=== PATIENT | male | born 1980 | race Caucasian/White ===

== ENCOUNTER 2022-07-07 11:52 | Inpatient (IN) | payer BC ==
[~2022-07-07] VITALS: Ht 182.9 cm; Wt 145.1 kg
[2022-07-07 11:58] VITALS: BP_SYST 166
[2022-07-07 12:30] LABS: BASOPHILS % (AUTO) 0.3 % (0.0-2.0); EOSINOPHILS % (AUTO) 0.7 % (0.0-4.0); HEMATOCRIT 45.3 % (36-54); LYMPHOCYTES # (AUTO) 1.1 K/uL (1.0-5.5); LYMPHOCYTES % (AUTO) 17.4 % (20.5-51.5); MEAN CORPUSCULAR VOLUME 91 fL (79.0-98.0); MONOCYTES # (AUTO) 0.5 K/uL (0.0-1.0); MONOCYTES % (AUTO) 7.1 % (1.7-9.3); NEUTROPHILS # (AUTO) 4.8 K/uL (1.8-7.7); NEUTROPHILS % (AUTO) 74.5 % (40.0-70.0); PLATELET COUNT (AUTO) 311 K/uL (130-430); RED BLOOD CELL COUNT(AUTO) 4.98 MIL/uL (4.2-6.2); WHITE BLOOD COUNT (AUTO) 6.4 K/uL (4.8-10.8)
[2022-07-07 12:39] LABS: CALCIUM 9.1 mg/dL (8.4-11.0); CREATININE 0.99 mg/dL (0.55-1.30); POTASSIUM 4.2 mmol/L (3.5-5.1)
[2022-07-07 12:50] LABS: ALBUMIN 3.3 g/dL (3.4-4.8); TOTAL BILIRUBIN 4.3 mg/dL (0.0-1.0)
[2022-07-07] MEDS ORDERED: HALOPERIDOL LACTATE 5 MG/ML VIAL IM ONE (13:30)
[2022-07-07] MEDS ORDERED: MORPHINE 2 MG/ML INJ. SYRINGE IVP PRN ×2 (15:00→15:45)
[2022-07-07] MEDS ORDERED: cloNIDine HCL 0.2 MG TABLET PO PRN (15:45)
[2022-07-07] MEDS ORDERED: LORazepam 2 MG/ML VIAL IVP PRN (15:45)
[2022-07-07] MEDS ORDERED: POTASSIUM CHLORIDE 20 MEQ TAB.PRT.SR PO PRN (15:45)
[2022-07-07] MEDS ORDERED: NALOXONE HCL 0.4 MG/ML AMP (NARCAN) IVP PRN ×2 (15:45)
[2022-07-07] MEDS ORDERED: ZOLPIDEM TARTRATE 5 MG TABLET PO PRN (15:45)
[2022-07-07] MEDS ORDERED: MAGNESIUM SULFATE 50 ML IV PRN (15:45)
[2022-07-07] MEDS ORDERED: MUPIROCIN 2% TOPICAL OINTMENT 22 GM NS PRN (15:45)
[2022-07-07] MEDS ORDERED: ONDANSETRON HCL 4 MG/2 ML VIAL IVP PRN (15:45)
[2022-07-07] MEDS ORDERED: ACETAMINOPHEN 325 MG TABLET PO PRN (16:00)
[2022-07-07] MEDS: D5/0.45 NS 1,000 ML IV SCH ×2 (16:06→21:40)
[2022-07-07] MEDS: MORPHINE 2 MG/ML INJ. SYRINGE IVP PRN ×2 (16:07→21:09)
[2022-07-07] MEDS ORDERED: OMEP20CA15 PO (17:22)
[2022-07-07] MEDS: ACETAMINOPHEN 325 MG TABLET PO PRN (21:26)
[2022-07-07 22:36] VITALS: BP_SYST 129
[2022-07-08] VITALS: BP_SYST 133
[2022-07-08] MEDS: D5/0.45 NS 1,000 ML IV SCH ×2 (04:20→11:00)
[2022-07-08] MEDS: MORPHINE 2 MG/ML INJ. SYRINGE IVP PRN ×3 (05:54→12:22)
[2022-07-08 07:00] VITALS: BP_SYST 174
[2022-07-08 07:37] LABS: BASOPHILS % (AUTO) 0.3 % (0.0-2.0); EOSINOPHILS % (AUTO) 0.1 % (0.0-4.0); HEMATOCRIT 45.1 % (36-54); LYMPHOCYTES # (AUTO) 0.9 K/uL (1.0-5.5); LYMPHOCYTES % (AUTO) 13.4 % (20.5-51.5); MEAN CORPUSCULAR VOLUME 93 fL (79.0-98.0); MONOCYTES # (AUTO) 0.3 K/uL (0.0-1.0); MONOCYTES % (AUTO) 5.1 % (1.7-9.3); NEUTROPHILS # (AUTO) 5.6 K/uL (1.8-7.7); NEUTROPHILS % (AUTO) 81.1 % (40.0-70.0); PLATELET COUNT (AUTO) 343 K/uL (130-430); RED BLOOD CELL COUNT(AUTO) 4.85 MIL/uL (4.2-6.2); RED CELL DISTRIBUTION WIDTH 12.9 % (9.0-15.0); WHITE BLOOD COUNT (AUTO) 6.9 K/uL (4.8-10.8)
[2022-07-08 07:46] LABS: ALBUMIN 3.3 g/dL (3.4-4.8); BILIRUBIN,DIRECT 4.5 mg/dL (0.0-0.3); CALCIUM 9.1 mg/dL (8.4-11.0); CREATININE 0.99 mg/dL (0.55-1.30); POTASSIUM 4.1 mmol/L (3.5-5.1); TOTAL BILIRUBIN 5.8 mg/dL (0.0-1.0)
[2022-07-08 08:00] VITALS: BP_SYST 174
[2022-07-08] MEDS: ONDANSETRON HCL 4 MG/2 ML VIAL IVP PRN ×2 (09:22→12:29)
[2022-07-08 12:00] VITALS: BP_SYST 148
[2022-07-08] MEDS ORDERED: NALOXONE HCL 0.4 MG/ML AMP (NARCAN) IVP PRN (12:45)
[2022-07-08] MEDS ORDERED: INDOMETHACIN 50 MG SUPP.RECT RC ONE ×2 (13:30→15:00)
[2022-07-08] MEDS ORDERED: ONDANSETRON HCL 4 MG/2 ML VIAL IVP PRN (17:30)
[2022-07-08] MEDS ORDERED: KETOROLAC TROMETHAMINE 30 MG VIAL IVP PRN (17:30)
[2022-07-08] MEDS: LR 1,000 ML IV SCH (18:17)
[2022-07-08 20:00] VITALS: BP_SYST 146
[2022-07-09] VITALS: BP_SYST 133
[2022-07-09 00:34] LABS: BILIRUBIN,URINE NEGATIVE (NEGATIVE); BLOOD, URINE 1+ (NEGATIVE); CLARITY/URINE CLEAR (CLEAR); COLOR,URINE YELLOW (YELLOW); GLUCOSE,URINE NEGATIVE (NEGATIVE); KETONES,URINE NEGATIVE (NEGATIVE); LEUKOCYTE ESTERASE ,URINE NEGATIVE (NEGATIVE); NITRITE, URINE NEGATIVE (NEGATIVE); PROTEIN URINE NEGATIVE (NEGATIVE)
[2022-07-09 01:24] LABS: BACTERIA,URINE FEW /HPF (None Seen); RBC,URINE 20-50 /HPF (0-3); WBC,URINE 0-3 /HPF (0-3)
[2022-07-09 01:25] LABS: MUCUS,URINE 2+ /LPF (None Seen)
[2022-07-09] MEDS: LR 1,000 ML IV SCH ×4 (03:49→20:21)
[2022-07-09 07:32] LABS: BASOPHILS % (AUTO) 0.2 % (0.0-2.0); EOSINOPHILS % (AUTO) 0.1 % (0.0-4.0); LYMPHOCYTES # (AUTO) 1.6 K/uL (1.0-5.5); LYMPHOCYTES % (AUTO) 12.4 % (20.5-51.5); MEAN CORPUSCULAR VOLUME 92 fL (79.0-98.0); MONOCYTES # (AUTO) 0.8 K/uL (0.0-1.0); MONOCYTES % (AUTO) 6.1 % (1.7-9.3); NEUTROPHILS # (AUTO) 10.5 K/uL (1.8-7.7); NEUTROPHILS % (AUTO) 81.2 % (40.0-70.0); PLATELET COUNT (AUTO) 295 K/uL (130-430); RED BLOOD CELL COUNT(AUTO) 4.58 MIL/uL (4.2-6.2); RED CELL DISTRIBUTION WIDTH 12.6 % (9.0-15.0); WHITE BLOOD COUNT (AUTO) 12.9 K/uL (4.8-10.8)
[2022-07-09 08:00] VITALS: BP_SYST 153
[2022-07-09] MEDS: ACETAMINOPHEN 325 MG TABLET PO PRN (08:04)
[2022-07-09 08:08] LABS: CALCIUM 8.9 mg/dL (8.4-11.0); CREATININE 0.91 mg/dL (0.55-1.30); POTASSIUM 4.2 mmol/L (3.5-5.1)
[2022-07-09 08:38] LABS: PROTHROMBIN TIME 10.3 SECS (9.5-12.5)
[2022-07-09 09:44] LABS: ALBUMIN 2.9 g/dL (3.4-4.8); BILIRUBIN,DIRECT 0.8 mg/dL (0.0-0.3); TOTAL BILIRUBIN 1.5 mg/dL (0.0-1.0)
[2022-07-09 12:00] VITALS: BP_SYST 148
[2022-07-09] MEDS ORDERED: PIPERACILLIN/TAZO 3.375/DEX-IS 50 ML IV ONE (12:30)
[2022-07-09] MEDS: HYDROmorphone 1 MG/ML INJ. CARTRIDGE IV PRN ×2 (13:48→20:22)
[2022-07-09] MEDS: ONDANSETRON HCL 4 MG/2 ML VIAL IVP PRN (13:49)
[2022-07-09] MEDS ORDERED: LR 1,000 ML IV.SOLN IV ONE (14:40)
[2022-07-09] MEDS ORDERED: HYDROmorphone 2 MG/ML VIAL IVP ONE (14:40)
[2022-07-09] MEDS ORDERED: PROPOFOL 200MG/ 20ML VIAL (DIPRIVAN) IV ONE (14:40)
[2022-07-09] MEDS ORDERED: CEFAZOLIN 1 GM IVPB PREMIX 50 ML IV ONE (14:40)
[2022-07-09] MEDS ORDERED: SEVOFLURANE 15 MIN GAS INH ONE (14:40)
[2022-07-09] MEDS ORDERED: ePHEDrine sulfate 50 MG/ML VIAL IVP ONE (14:40)
[2022-07-09] MEDS ORDERED: DEXAMETHASONE SOD PHOSPHATE 4 MG/ML VIAL IVP ONE (14:40)
[2022-07-09] MEDS ORDERED: MIDAZOLAM HCL 5 MG/5 ML VIAL IVP ONE (14:40)
[2022-07-09] MEDS ORDERED: NS 1000 ML IV.SOLN IV ONE (14:40)
[2022-07-09] MEDS ORDERED: SUGAMMADEX SODIUM 200 MG/2 ML VIAL IV ONE (14:40)
[2022-07-09] MEDS ORDERED: INDOCYANINE GREEN 25 MG VIAL INJ ONE (14:40)
[2022-07-09] MEDS ORDERED: ROCURONIUM BROMIDE 10 MG/ML (ZEMURON) IV ONE (14:40)
[2022-07-09] MEDS: PIPERACILLIN/TAZO 3.375/DEX-IS 50 ML IV SCH (18:00)
[2022-07-09] MEDS ORDERED: HYDROmorphone 1 MG/ML INJ. CARTRIDGE IVP PRN (18:15)
[2022-07-09] MEDS ORDERED: fentaNYL CITRATE/PF 100 MCG/2 ML AMP IVP ONE (18:15)
[2022-07-09] MEDS ORDERED: ONDANSETRON HCL 4 MG/2 ML VIAL IVP PRN (18:15)
[2022-07-09] MEDS ORDERED: ACETAMINOPHEN I.V. 1000 MG 100 ML IV ONE (18:15)
[2022-07-09] MEDS ORDERED: NALOXONE HCL 0.4 MG/ML AMP (NARCAN) IVP PRN (18:15)
[2022-07-09] MEDS ORDERED: MEPERIDINE HCL/PF 25 MG/ML DISP.SYRIN IVP PRN (18:15)
[2022-07-09] MEDS ORDERED: METOCLOPRAMIDE HCL 10 MG/2 ML VIAL IVP PRN (18:15)
[2022-07-09 20:07] VITALS: BP_SYST 148
[2022-07-09 21:25] VITALS: BP_SYST 148
[2022-07-10 00:13] VITALS: BP_SYST 121
[2022-07-10] MEDS: PIPERACILLIN/TAZO 3.375/DEX-IS 50 ML IV SCH ×4 (00:18→17:11)
[2022-07-10] MEDS: HYDROmorphone 1 MG/ML INJ. CARTRIDGE IV PRN ×2 (00:18→03:59)
[2022-07-10] MEDS: LR 1,000 ML IV SCH ×4 (03:25→21:23)
[2022-07-10 03:53] VITALS: BP_SYST 156
[2022-07-10 07:09] LABS: BASOPHILS % (AUTO) 0.3 % (0.0-2.0); EOSINOPHILS % (AUTO) 0.2 % (0.0-4.0); HEMATOCRIT 40.4 % (36-54); LYMPHOCYTES # (AUTO) 1.4 K/uL (1.0-5.5); LYMPHOCYTES % (AUTO) 11.8 % (20.5-51.5); MEAN CORPUSCULAR VOLUME 93 fL (79.0-98.0); MONOCYTES # (AUTO) 0.8 K/uL (0.0-1.0); MONOCYTES % (AUTO) 6.6 % (1.7-9.3); NEUTROPHILS # (AUTO) 9.8 K/uL (1.8-7.7); NEUTROPHILS % (AUTO) 81.1 % (40.0-70.0); PLATELET COUNT (AUTO) 328 K/uL (130-430); RED BLOOD CELL COUNT(AUTO) 4.33 MIL/uL (4.2-6.2); RED CELL DISTRIBUTION WIDTH 12.9 % (9.0-15.0); WHITE BLOOD COUNT (AUTO) 12.2 K/uL (4.8-10.8)
[2022-07-10 07:29] LABS: ALBUMIN 2.7 g/dL (3.4-4.8); CALCIUM 8.7 mg/dL (8.4-11.0); CREATININE 1.01 mg/dL (0.55-1.30); POTASSIUM 4.1 mmol/L (3.5-5.1); TOTAL BILIRUBIN 1.3 mg/dL (0.0-1.0)
[2022-07-10 08:00] VITALS: BP_SYST 168
[2022-07-10] MEDS: MORPHINE 2 MG/ML INJ. SYRINGE IVP PRN ×2 (08:21→08:38)
[2022-07-10] MEDS: ONDANSETRON HCL 4 MG/2 ML VIAL IVP PRN (08:38)
[2022-07-10] MEDS: DOCUSATE SODIUM 100 MG CAPSULE PO PRN ×2 (08:38→17:11)
[2022-07-10] MEDS ORDERED: NALOXONE HCL 0.4 MG/ML AMP (NARCAN) IVP PRN ×2 (09:30)
[2022-07-10 12:00] VITALS: BP_SYST 158
[2022-07-10] MEDS: HYDROcodone/ACETAMIN 5-325 MG TAB (NORCO/ VICODIN) PO PRN ×3 (12:30→21:22)
[2022-07-10 16:00] VITALS: BP_SYST 155
[2022-07-10 19:58] VITALS: BP_SYST 147
[2022-07-11 00:51] VITALS: BP_SYST 145
[2022-07-11] MEDS: PIPERACILLIN/TAZO 3.375/DEX-IS 50 ML IV SCH ×3 (00:52→12:56)
[2022-07-11] MEDS: HYDROcodone/ACETAMIN 5-325 MG TAB (NORCO/ VICODIN) PO PRN ×3 (00:53→10:48)
[2022-07-11] MEDS: LR 1,000 ML IV SCH ×2 (06:19→12:55)
[2022-07-11 07:23] LABS: BASOPHILS % (AUTO) 0.5 % (0.0-2.0); EOSINOPHILS # (AUTO) 0.1 K/uL (0.0-0.4); EOSINOPHILS % (AUTO) 1.4 % (0.0-4.0); HEMATOCRIT 40.6 % (36-54); LYMPHOCYTES # (AUTO) 1.4 K/uL (1.0-5.5); LYMPHOCYTES % (AUTO) 14.7 % (20.5-51.5); MEAN CORPUSCULAR VOLUME 93 fL (79.0-98.0); MONOCYTES # (AUTO) 0.8 K/uL (0.0-1.0); MONOCYTES % (AUTO) 8.2 % (1.7-9.3); NEUTROPHILS # (AUTO) 7.2 K/uL (1.8-7.7); NEUTROPHILS % (AUTO) 75.2 % (40.0-70.0); PLATELET COUNT (AUTO) 301 K/uL (130-430); RED BLOOD CELL COUNT(AUTO) 4.37 MIL/uL (4.2-6.2); RED CELL DISTRIBUTION WIDTH 12.9 % (9.0-15.0); WHITE BLOOD COUNT (AUTO) 9.6 K/uL (4.8-10.8)
[2022-07-11 11:40] VITALS: BP_SYST 136
[2022-07-11 15:29] VITALS: BP_SYST 140
[2022-07-11] MEDS ORDERED: AMOX-423 PO (16:46)
[2022-07-11] MEDS ORDERED: IBUP-1969 PO (16:46)
[2022-07-11] MEDS ORDERED: HYDR-3921 PO (16:47)
[2022-07-11 18:13] VITALS: BP_SYST 133
== END 2022-07-11 18:30 | disposition home or self-care (01) | DRG 418 ==
LOC: SED 11:52 → SMU 14:47
PROVIDERS: ADMIT General Practice; ATTEND General Practice
PROC: 0FF98ZZ Fragmentation in Common Bile Duct, Via Natural or Artificial Opening Endoscopic (ICD-10-PCS; principal; 2022-07-08 15:00)
PROC: 0FT44ZZ Resection of Gallbladder, Percutaneous Endoscopic Approach (ICD-10-PCS; 2022-07-09)
PROC: 8E0W4CZ Robotic Assisted Procedure of Trunk Region, Percutaneous Endoscopic Approach (ICD-10-PCS; 2022-07-09)
PROC: BF131ZZ Fluoroscopy of Gallbladder and Bile Ducts using Low Osmolar Contrast (ICD-10-PCS; 2022-07-09)
DX: K80.65 Calculus of gallbladder and bile duct with chronic cholecystitis with obstruction (principal); J93.82 Other air leak; K82.1 Hydrops of gallbladder; R17 Unspecified jaundice; Z68.41 Body mass index [BMI] 40.0-44.9, adult; K21.9 Gastro-esophageal reflux disease without esophagitis; R74.01 Elevation of levels of liver transaminase levels; E66.9 Obesity, unspecified; K66.0 Peritoneal adhesions (postprocedural) (postinfection); Z20.822 Contact with and (suspected) exposure to COVID-19
CPT/HCPCS: 36415; 74181; 76001; 76376; 76700-TC; 80048; 80053; 80076; 81000; 82150; 83036; 83690; 83735; 85025; 85610-TC; 87081; 88304; 93005; 94010; 94760; 99285; J0690; J1100; J1170; J1630; J2250; J2270; J2405; J2543; J2704; J3490; J7030; J7120; Q9967